=== PATIENT | male | born 1960 | race Caucasian/White ===

== ENCOUNTER 2021-07-26 15:29 | Inpatient (IN) | payer BC ==
[2021-07-26 16:58] VITALS: BMI 27.6
[2021-07-26] MEDS ORDERED: MAGNESIUM CITRATE 300 ML BOTTLE PO PRN (17:33)
[2021-07-26] MEDS ORDERED: MAGNESIUM HYDROX 2400MG/30ML ORAL SUSPENSION 30 ML CUP PO PRN (17:33)
[2021-07-26] MEDS ORDERED: LOPERAMIDE HCL 2 MG CAPSULE PO PRN (17:33)
[2021-07-26] MEDS ORDERED: IBUPROFEN 400 MG TABLET (FP) PO PRN (17:33)
[2021-07-26] MEDS ORDERED: NICOTINE 10 MG CARTRIDGE (INHALER) IH PRN (17:33)
[2021-07-26] MEDS ORDERED: BISMUTH SUBSALICYLATE 524 MG/30 ML PO PRN (17:33)
[2021-07-26] MEDS ORDERED: BENZOCAINE/MENTHOL (CHLORASEPTIC ) LOZENGE MM PRN (17:33)
[2021-07-26] MEDS ORDERED: ONDANSETRON *ODT* 4 MG TABLET SL PRN (17:33)
[2021-07-26] MEDS ORDERED: ACETAMINOPHEN 325 MG TABLET (FP) PO PRN ×2 (17:33)
[2021-07-26] MEDS ORDERED: NALOXONE HCL (KLOXXADO) 8 MG SPRAY NS PRN (17:33)
[2021-07-26] MEDS ORDERED: DICYCLOMINE HCL 10 MG CAPSULE PO PRN (17:33)
[2021-07-26] MEDS ORDERED: METHOCARBAMOL 500 MG TABLET PO PRN (17:33)
[2021-07-26] MEDS ORDERED: MAG HYDROX/AL HYDROX/SIMETH 30 ML UNIT-DOSE CUP PO PRN (17:33)
[2021-07-27] MEDS: diazePAM 5 MG TABLET PO PRN (01:28)
[2021-07-27] MEDS: NICOTINE 14 MG/24 HOURS TOPICAL PATCH TD SCH ×2 (01:49→10:27)
[2021-07-27] MEDS: MELATONIN 5 MG TABLETS PO SCH ×2 (01:50→22:27)
[2021-07-27] MEDS: hydrOXYzine PAMOATE 25 MG CAPSULE (FP) PO SCH ×6 (01:50→22:27)
[2021-07-27] MEDS: PRENATAL VITAMINS W/ FOLIC ACID TABLET (FP) PO SCH ×2 (01:50→10:26)
[2021-07-27] MEDS: THIAMINE HCL 100 MG TABLET (FP) PO SCH ×2 (01:51→22:27)
[2021-07-27] MEDS: diazePAM 5 MG TABLET PO SCH ×5 (01:51→22:27)
[2021-07-27] MEDS: INSULIN SLIDING SCALE (NOVOLOG) 1 VIAL SQ SCH ×2 (08:26→18:10)
[2021-07-27] MEDS ORDERED: methaDONE HCL 10 MG TABLET PO SCH (09:30)
[2021-07-27] MEDS ORDERED: methaDONE HCL 10 MG TABLET ONE (10:02)
[2021-07-27] MEDS ORDERED: methaDONE HCL 40 MG DISPERSABLE TABLET ONE (10:03)
[2021-07-27 10:47] LABS: HEMATOCRIT 39.5 % (35.4-49); HEMOGLOBIN 13.4 GM/dL (11.7-16.9); MCH 29.7 pg (25.7-33.7); MCHC 34.1 g/dl (32.0-35.9); MEAN CELL VOLUME 87.2 fl (80-96); MEAN PLT VOLUME 7.6 fl (7.5-11.1); PLATELET COUNT 259 10^3/uL (134-434); RBC 4.53 M/mm3 (4.00-5.60); RDW 13.6 % (11.9-15.9); WHITE BLOOD COUNT 6.5 K/mm3 (4.0-10.0)
[2021-07-27 11:14] LABS: ALBUMIN 3.2 g/dl (3.4-5.0); BLOOD UREA NITROGEN 15.3 mg/dL (7-18); CALCIUM 8.7 mg/dL (8.5-10.1)
[2021-07-27 11:17] LABS: CREATININE 0.8 mg/dL (0.55-1.3)
[2021-07-27 11:19] LABS: BILIRUBIN,TOTAL 0.3 mg/dL (0.2-1); TOT PROT 6.1 g/dl (6.4-8.2)
[2021-07-28] MEDS ORDERED: methaDONE HCL 40 MG DISPERSABLE TABLET ONE (04:24)
[2021-07-28] MEDS ORDERED: methaDONE HCL 10 MG TABLET ONE (04:24)
[2021-07-28] MEDS: diazePAM 5 MG TABLET PO SCH ×3 (05:39→22:38)
[2021-07-28] MEDS: hydrOXYzine PAMOATE 25 MG CAPSULE (FP) PO SCH ×5 (05:40→22:39)
[2021-07-28] MEDS: INSULIN SLIDING SCALE (NOVOLOG) 1 VIAL SQ SCH ×2 (06:41→17:46)
[2021-07-28] MEDS: diazePAM 5 MG TABLET PO PRN (09:18)
[2021-07-28] MEDS: NICOTINE 14 MG/24 HOURS TOPICAL PATCH TD SCH (10:11)
[2021-07-28] MEDS: PRENATAL VITAMINS W/ FOLIC ACID TABLET (FP) PO SCH (10:12)
[2021-07-28 15:09] LABS: SARS-CoV-2 NAA Not Detected (Not Detected)
[2021-07-28] MEDS: MELATONIN 5 MG TABLETS PO SCH (22:38)
[2021-07-28] MEDS: THIAMINE HCL 100 MG TABLET (FP) PO SCH (22:39)
[2021-07-29] MEDS ORDERED: methaDONE HCL 10 MG TABLET ONE (04:15)
[2021-07-29] MEDS ORDERED: methaDONE HCL 40 MG DISPERSABLE TABLET ONE (04:15)
[2021-07-29] MEDS: diazePAM 5 MG TABLET PO SCH ×2 (06:44→17:35)
[2021-07-29] MEDS: hydrOXYzine PAMOATE 25 MG CAPSULE (FP) PO SCH ×5 (06:44→22:10)
[2021-07-29] MEDS: INSULIN SLIDING SCALE (NOVOLOG) 1 VIAL SQ SCH ×3 (06:48→22:11)
[2021-07-29] MEDS ORDERED: ALBUTEROL SO4 HFA INHALER IH PRN (08:20)
[2021-07-29] MEDS ORDERED: LISINOPRIL 5 MG TABLET PO SCH (10:00)
[2021-07-29] MEDS ORDERED: ASPIRIN 81 MG CHEWABLE TABLETS PO SCH (10:00)
[2021-07-29] MEDS: NICOTINE 14 MG/24 HOURS TOPICAL PATCH TD SCH (10:49)
[2021-07-29] MEDS: PRENATAL VITAMINS W/ FOLIC ACID TABLET (FP) PO SCH (10:49)
[2021-07-29] MEDS ORDERED: ATORVASTATIN CA 80 MG TABLET (FP) PO SCH (22:00)
[2021-07-29] MEDS: MELATONIN 5 MG TABLETS PO SCH (22:10)
[2021-07-29] MEDS: THIAMINE HCL 100 MG TABLET (FP) PO SCH (22:10)
[2021-07-30] MEDS ORDERED: methaDONE HCL 40 MG DISPERSABLE TABLET ONE (04:56)
[2021-07-30] MEDS ORDERED: methaDONE HCL 10 MG TABLET ONE (04:56)
[2021-07-30] MEDS: hydrOXYzine PAMOATE 25 MG CAPSULE (FP) PO SCH (05:39)
[2021-07-30] MEDS ORDERED: diazePAM 5 MG TABLET PO ONE (06:00)
[2021-07-30] MEDS: INSULIN SLIDING SCALE (NOVOLOG) 1 VIAL SQ SCH (07:03)
[2021-07-30 09:36] VITALS: BP 97/68; PULSE 108; TEMP 97.8
== END 2021-07-30 09:19 | disposition home or self-care (01) | DRG 773 ==
LOC: YASAS 15:29 → Y3N 19:00
PROVIDERS: ADMIT Allergy & Immunology; ATTEND Allergy & Immunology
PROC: HZ2ZZZZ Detoxification Services for Substance Abuse Treatment (ICD-10-PCS; principal; 2021-07-26)
DX: F11.23 Opioid dependence with withdrawal (principal); F13.20 Sedative, hypnotic or anxiolytic dependence, uncomplicated; F17.210 Nicotine dependence, cigarettes, uncomplicated; E78.5 Hyperlipidemia, unspecified; E11.9 Type 2 diabetes mellitus without complications; J45.909 Unspecified asthma, uncomplicated; I25.10 Atherosclerotic heart disease of native coronary artery without angina pectoris; I10 Essential (primary) hypertension; Z95.5 Presence of coronary angioplasty implant and graft
CPT/HCPCS: 36415; 80053; 82947; 82962; 83036; 85027; 86780; 93005; 93010; C9803-CS; U0003; U0005